=== PATIENT | female | born 1950 | race African-American/Black ===

== ENCOUNTER 2017-06-19 16:38 | Emergency (ER) | payer OTHER, BC ==
[2017-06-19 16:46] VITALS: BP 137/67; PULSE 55; TEMP 97.4; BMI 30.4
[2017-06-19] MEDS ORDERED: ONDANSETRON 4 MG/2 ML VIAL IVPUSH ONE (16:47)
[2017-06-19] MEDS ORDERED: SODIUM CHLORIDE 0.9% 500 ML INFUS.BAG IV ONE (16:47)
--- NOTE | 2017-06-19 16:48 | PDOC ---
Rapid Medical Evaluation Medical Evaluation: Allergies Allergy/AdvReac Type Severity Reaction Status Date / Time allopurinol Allergy Verified 06/19/17 16:42 06/19/17 16:43 I have performed a brief in-person evaluation of this patient. The patient presents with a chief complaint of: R sided abd pain, +nausea, vomited "clear", denies diarrhea, sent in by urgent care r/o appy Pertinent physical exam findings: well appearing I have ordered the following: abd ct, labs The patient will proceed to the ED for further evaluation. <Donna Ortiz - Last Filed: 06/19/17 16:43> Medical Evaluation: Allergies Allergy/AdvReac Type Severity Reaction Status Date / Time allopurinol Allergy Verified 06/19/17 16:42 Vital Signs Temp Pulse Resp BP Pulse Ox 97.4 F L 55 L 18 137/67 100 06/19/17 16:42 06/19/17 16:42 06/19/17 16:42 06/19/17 16:42 06/19/17 16:42 <Shaina Jones - Last Filed: 06/19/17 23:01> Chief Complaint: Pain Time Seen by Provider: 06/19/17 16:42
[2017-06-19 19:05] LABS: BASO % 0.4 % (0-2.0); EOS % 0.2 % (0-4.5); HEMATOCRIT 40.5 % (32.4-45.2); HEMOGLOBIN 13.6 GM/dL (10.7-15.3); LYMPH % 13.6 % (8-40); MCH 29.1 pg (25.7-33.7); MCHC 33.6 g/dl (32.0-36.0); MEAN CELL VOLUME 86.6 fl (80-96); MEAN PLT VOLUME 9.9 fl (7.5-11.1); NEUT % 81.8 % (42.8-82.8); PLATELET COUNT 168 K/MM3 (134-434); RBC 4.68 M/mm3 (3.60-5.2); RDW 14.3 % (11.6-15.6); WHITE BLOOD COUNT 11.5 K/mm3 (4.0-10.0)
[2017-06-19 19:11] LABS: URINE APPEARANCE CLEAR; URINE BILIRUBIN NEGATIVE (NEGATIVE); URINE BLOOD NEGATIVE (NEGATIVE); URINE COLOR LTYELLOW; URINE GLUCOSE (UA) NEGATIVE (NEGATIVE); URINE KETONE NEGATIVE (NEGATIVE); URINE LEUK ESTERASE NEGATIVE (NEGATIVE); URINE NITRITE NEGATIVE (NEGATIVE); URINE PROTEIN NEGATIVE (NEGATIVE); URINE UROBILINOGEN NEGATIVE mg/dL (0.2-1.0)
[2017-06-19 19:41] LABS: ALBUMIN 4.5 g/dl (3.4-5.0); ANION GAP 6 (8-16); BILIRUBIN,TOTAL 0.5 mg/dL (0.2-1.0); BLOOD UREA NITROGEN 24 mg/dL (7-18); CHLORIDE 109 mmol/L (98-107); CO2 26 mmol/L (21-32); CREATININE 1.2 mg/dL (0.55-1.02); GLUCOSE,RANDOM 100 mg/dL (74-106); POTASSIUM 4.3 mmol/L (3.5-5.1); SGOT/AST 21 U/L (15-37); SGPT/ALT 36 U/L (12-78); SODIUM 141 mmol/L (136-145); TOT PROT 8.3 g/dl (6.4-8.2)
[2017-06-19 19:42] LABS: ALK PHOS 107 U/L (45-117)
[2017-06-19] MEDS ORDERED: ONDANSETRON 4 MG/2 ML VIAL ONE (20:19)
[2017-06-19 21:07] LABS: INR 0.98 (0.82-1.09); PROTHROMBIN TIME (PATIENT) 11.1 SEC (9.98-11.88)
--- NOTE | 2017-06-19 23:02 | PDOC ---
History of Present Illness - General History Source: Patient Exam Limitations: No Limitations - History of Present Illness Initial Comments: 06/19/17 23:08 The patient is a 66 year old female, with no significant past medical history, who presents to the emergency department, sent from [facility], for evaluation of right lower quadrant pain, nausea, and vomiting sine 11AM today. The patient states the pain is constant and nonradiating. She reports feeling nauseous with one episode of clear emesis earlier today. The patient denies chest pain, shortness of breath, headache and dizziness. The patient denies fever, chills, diarrhea and constipation. The patient denies dysuria, frequency, urgency and hematuria. Past surgical history: lipoma removal x 2 Social history: nonsmoker. Occasional ETOH consumption. <Jelly Coates - Last Filed: 06/20/17 00:58> <Shaina Jones - Last Filed: 06/20/17 01:54> - General Chief Complaint: Pain Stated Complaint: ABD PAIN Time Seen by Provider: 06/19/17 16:42 Past History <Jelly Coates - Last Filed: 06/20/17 00:58> - Past Medical History COPD: No Other medical history: gout - Surgical History Abdominal Surgery: Yes (tubal ligation) - Suicide/Smoking/Psychosocial Hx Smoking History: Never smoked Have you smoked in the past 12 months: No Information on smoking cessation initiated: No Hx Alcohol Use: No Drug/Substance Use Hx: No Substance Use Type: None <Shaina Jones - Last Filed: 06/20/17 01:54> - Past Medical History Allergies/Adverse Reactions: Allergies Allergy/AdvReac Type Severity Reaction Status Date / Time allopurinol Allergy Verified 06/19/17 16:42 Home Medications: Ambulatory Orders NK [No Known Home Medication] 06/19/17 Review of Systems - Review of Systems Able to Perform ROS?: Yes Comments:: 06/19/17 23:08 CONSTITUTIONAL: Absent: fever, chills, diaphoresis, generalized weakness, malaise, loss of appetite HEENT: Absent: rhinorrhea, nasal congestion, throat pain, throat swelling, difficulty swallowing, mouth swelling, ear pain, eye pain, visual Changes CARDIOVASCULAR: Absent: chest pain, syncope, palpitations, irregular heart rate, lightheadedness , peripheral edema RESPIRATORY: Absent: cough, shortness of breath, dyspnea with exertion, orthopnea, wheezing, stridor, hemoptysis GASTROINTESTINAL: (+) RLQ pain, nausea, vomiting, Absent: abdominal distension, diarrhea, constipation, melena, hematochezia GENITOURINARY: Absent: dysuria, frequency, urgency, hesitancy, hematuria, flank pain, genital pain MUSCULOSKELETAL: Absent: myalgia, arthralgia, joint swelling SKIN: Absent: rash, itching, pallor HEMATOLOGIC/IMMUNOLOGIC: Absent: easy bleeding, easy bruising, lymphadenopathy, frequent infections ENDOCRINE: Absent: unexplained weight gain, unexplained weight loss, heat intolerance, cold intolerance NEUROLOGIC: Absent: headache, focal weakness or paresthesias, dizziness, unsteady gait, seizure, mental status changes, bladder or bowel incontinence PSYCHIATRIC: Absent: anxiety, depression, suicidal or homicidal ideation, hallucinations. <Jelly Coates - Last Filed: 06/20/17 00:58> *Physical Exam - Vital Signs Last Vital Signs Temp Pulse Resp BP Pulse Ox 97.4 F L 55 L 18 137/67 100 06/19/17 16:42 06/19/17 16:42 06/19/17 16:42 06/19/17 16:42 06/19/17 16:42 - Physical Exam Comments: 06/19/17 23:09 GENERAL: Well developed, well nourished. Awake and alert. No acute distress. HEENT: Normocephalic, atraumatic. PERRLA, EOMI. No conjunctival pallor. Sclera are non- icteric. Moist mucous membranes. Oropharynx is clear. NECK: Supple. Full ROM. No JVD. Carotid pulses 2+ and symmetric, without bruits. No thyromegaly. No lymphadenopathy. CARDIOVASCULAR: Regular rate and rhythm. No murmurs, rubs, or gallops. Distal pulses are 2+ and symmetric. PULMONARY: No evidence of respiratory distress. Lungs clear to auscultation bilaterally. No wheezing, rales or rhonchi. ABDOMINAL: (+) RLQ tenderness with mild rebound. Soft. Non-tender. Non-distended. No guarding. No organomegaly. Normoactive bowel sounds. MUSCULOSKELETAL Normal range of motion at all joints. No bony deformities or tenderness. No CVA tenderness. EXTREMITIES: No cyanosis. No clubbing. No edema. No calf tenderness. SKIN: Warm and dry. Normal capillary refill. No rashes. No jaundice. NEUROLOGICAL: Alert, awake, appropriate. Cranial nerves 2-12 intact. Normoreflexic in the upper and lower extremities. Normal speech. Toes are down-going bilaterally. Gait is normal without ataxia. PSYCHIATRIC: Cooperative. Good eye contact. Appropriate mood and affect. <Jelly Coates - Last Filed: 06/20/17 00:58> - Vital Signs Last Vital Signs Temp Pulse Resp BP Pulse Ox 97.4 F L 55 L 18 137/67 100 06/19/17 16:42 06/19/17 16:42 06/19/17 16:42 06/19/17 16:42 06/19/17 16:42 <Shaina Jones - Last Filed: 06/20/17 01:54> ED Treatment Course - LABORATORY CBC & Chemistry Diagram: 06/19/17 18:43 06/19/17 18:43 - ADDITIONAL ORDERS Additional order review: Laboratory Results 06/19/17 06/19/17 06/19/17 20:23 18:43 18:43 PT with INR 11.10 INR 0.98 Sodium Potassium Chloride Carbon Dioxide Anion Gap BUN Creatinine Creat Clearance w eGFR Random Glucose Calcium Total Bilirubin AST ALT Alkaline Phosphatase Total Protein Albumin Lipase 107 Urine Color Urine Appearance Urine pH Ur Specific [place] Urine Protein Urine Glucose (UA) Urine Ketones Urine Blood Urine Nitrite Urine Bilirubin Urine Urobilinogen Ur Leukocyte Esterase Blood Type O POSITIVE Antibody Screen Negative 06/19/17 06/19/17 18:43 18:30 PT with INR INR Sodium 141 Potassium 4.3 Chloride 109 H Carbon Dioxide 26 Anion Gap 6 L BUN 24 H Creatinine 1.2 H Creat Clearance w eGFR 44.81 Random Glucose 100 Calcium 9.0 Total Bilirubin 0.5 AST 21 ALT 36 Alkaline Phosphatase 107 Total Protein 8.3 H Albumin 4.5 Lipase Urine Color Ltyellow Urine Appearance Clear Urine pH 5.0 Ur Specific [place] 1.012 Urine Protein Negative Urine Glucose (UA) Negative Urine Ketones Negative Urine Blood Negative Urine Nitrite Negative Urine Bilirubin Negative Urine Urobilinogen Negative Ur Leukocyte Esterase Negative Blood Type Antibody Screen 06/19/17 18:43 RBC 4.68 MCV 86.6 MCHC 33.6 RDW 14.3 MPV 9.9 Neutrophils % 81.8 Lymphocytes % 13.6 Monocytes % 4.0 Eosinophils % 0.2 Basophils % 0.4 - RADIOLOGY Radiograph Interpretation: EXAM: CT ABDOMEN AND PELVIS WITH ORAL CONTRAST HISTORY:Right lower quadrant pain TECHNIQUE: Contiguous axial images were obtained utilizing a multislice, multidetector CT scanner. Post-processed reformations were also submitted for review. COMPARISON: None available. FINDINGS: Lower Chest: Minimal subsegmental atelectasis versus scarring in the lower lobes posteriorly. Abdomen: Liver:: Incidental note is made of a 1 cm hyperattenuating lesion in the lateral segment of the left hepatic lobe, likely a hepatic cyst edema. Tiny calcification in the anterior liver compatible with remote granulomatous disease. Bile Ducts: Within normal limits. Gallbladder:: Within normal limits. Pancreas:: Coarse calcification of the pancreatic tail likely sequela remote pancreatitis. Spleen:: Within normal limits. Adrenals: Within normal limits. Kidneys: There are a few small nonobstructing nephrolithiasis in the right kidney measuring less than 6 mm. Questionable 2mm ureterolithiasis in the right distal ureter without significant hydroureteronephrosis (axial sequence image 125/156). Abdominal Lymph Nodes: Within normal limits. Stomach:: Within normal limits. Bowel:: No evidence of small bowel obstruction or mass. Normal appendix is identified. Pelvis: Reproductive Organs: Within normal limits. Bladde: Within normal limits. Pelvic Lymph Nodes: Within normal limits. Peritoneum: Within normal limits. Vessels: Aorta: Within normal limits without aneurysm. Retroperitoneum: Within normal limits. Bones: : No suspicious osseous lesions. IMPRESSION: 1. No evidence of small bowel obstruction or mass. Normal appendix is identified. 2. There are a few small nonobstructing nephrolithiasis in the right kidney measuring less than 6mm. Questionable 2 mm ureterolithiasis in the right distal ureter without significant hydroureteronephrosis (axial sequence image 125/156). 3. Coarse calcification of the pancreatic tail likely sequela remote pancreatitis. This CT exam has been performed using low dose protocols to limit radiation exposure to as low as reasonably achievable. This center is recognized and certified by the [employer], a designation awarded to centers who have demonstrated faculty competency, clinical image excellence and radiation safety compliance requirements. Gautam Cook MD 06/20/2017 00:49 EST - Medications Given in the ED: ED Medications Discontinued Medications Generic Name Dose Route Start Last Admin Trade Name Freq PRN Reason Stop Dose Admin Ondansetron HCl 4 mg 06/19/17 16:47 06/19/17 20:33 Zofran Injection IVPUSH 06/19/17 16:48 4 mg ONCE ONE Administration Sodium Chloride 1,000 ml 06/19/17 16:47 06/19/17 20:33 Normal Saline - IV 06/19/17 16:48 1,000 ml ONCE ONE Administration <Jelly Coates - Last Filed: 06/20/17 00:58> - LABORATORY CBC & Chemistry Diagram: 06/19/17 18:43 06/19/17 18:43 - ADDITIONAL ORDERS Additional order review: Laboratory Results 06/19/17 06/19/17 06/19/17 20:23 18:43 18:43 PT with INR 11.10 INR 0.98 Sodium Potassium Chloride Carbon Dioxide Anion Gap BUN Creatinine Creat Clearance w eGFR Random Glucose Calcium Total Bilirubin AST ALT Alkaline Phosphatase Total Protein Albumin Lipase 107 Urine Color Urine Appearance Urine pH Ur Specific [place] Urine Protein Urine Glucose (UA) Urine Ketones Urine Blood Urine Nitrite Urine Bilirubin Urine Urobilinogen Ur Leukocyte Esterase Blood Type O POSITIVE Antibody Screen Negative 06/19/17 06/19/17 18:43 18:30 PT with INR INR Sodium 141 Potassium 4.3 Chloride 109 H Carbon Dioxide 26 Anion Gap 6 L BUN 24 H Creatinine 1.2 H Creat Clearance w eGFR 44.81 Random Glucose 100 Calcium 9.0 Total Bilirubin 0.5 AST 21 ALT 36 Alkaline Phosphatase 107 Total Protein 8.3 H Albumin 4.5 Lipase Urine Color Ltyellow Urine Appearance Clear Urine pH 5.0 Ur Specific [place] 1.012 Urine Protein Negative Urine Glucose (UA) Negative Urine Ketones Negative Urine Blood Negative Urine Nitrite Negative Urine Bilirubin Negative Urine Urobilinogen Negative Ur Leukocyte Esterase Negative Blood Type Antibody Screen 06/19/17 18:43 RBC 4.68 MCV 86.6 MCHC 33.6 RDW 14.3 MPV 9.9 Neutrophils % 81.8 Lymphocytes % 13.6 Monocytes % 4.0 Eosinophils % 0.2 Basophils % 0.4 - Medications Given in the ED: ED Medications Discontinued Medications Generic Name Dose Route Start Last Admin Trade Name Renae PRN Reason Stop Dose Admin Ondansetron HCl 4 mg 06/19/17 16:47 06/19/17 20:33 Zofran Injection IVPUSH 06/19/17 16:48 4 mg ONCE ONE Administration Sodium Chloride 1,000 ml 06/19/17 16:47 06/19/17 20:33 Normal Saline - IV 06/19/17 16:48 1,000 ml ONCE ONE Administration <Shaina Jones - Last Filed: 06/20/17 01:54> *DC/Admit/Observation/Transfer - Attestations Scribe Attestion: 06/19/17 23:09 Documentation prepared by Jelly Coates, acting as chief medical director for Shaina Jones MD <Jelly Coates - Last Filed: 06/20/17 00:58> <Shaina Jones - Last Filed: 06/20/17 01:54> Diagnosis at time of Disposition: Kidney stone on right side - Discharge Dispostion Disposition: HOME Condition at time of disposition: Stable - Referrals Referrals: Franky Garcia [Primary Care Provider] - - Patient Instructions Printed Discharge Instructions: DI for Kidney Stones Additional Instructions: please followup with your doctor if symptoms persist - Post Discharge Activity
== END 2017-06-20 02:08 | disposition home or self-care (01) ==
LOC: JER 16:38
PROC: 3E033GC Introduction of Other Therapeutic Substance into Peripheral Vein, Percutaneous Approach (ICD-10-PCS; principal; 2017-06-19)
DX: N20.0 Calculus of kidney (principal)
CPT/HCPCS: 36415; 74176-TC; 80053; 81003; 83690; 85025; 85610; 86850; 86900; 86901; 87086; 96374; 99282-25